=== PATIENT | male | born 1985 | race Caucasian/White ===

== ENCOUNTER 2021-07-07 17:35 | Observation (INO) ==
[2021-07-07 19:16] LABS: Basophils # 0.1 K/mcL (0.0-0.2); Basophils % 0.3 %; Eosinophils % 0.2 %; Hematocrit 45.8 % (37.5-50.1); Hemoglobin 16.1 g/dL (12.9-16.9); Immature Granulocytes % 0.4 % (0-4); Lymphocytes # 1.2 K/mcL (0.6-4.6); Lymphocytes % 7.1 %; Mean Corpuscular HGB Conc 35.2 g/dL (31.6-35.5); Mean Corpuscular Hemoglobin 31.3 pg (28.0-33.3); Mean Corpuscular Volume 89.1 fL (83.0-100.0); Mean Platelet Volume 9.6 fL (9.4-12.4); Monocytes # 1.2 K/mcL (0.0-1.3); Monocytes % 7.5 %; Neutrophils # 13.7 K/mcL (1.6-8.9); Platelet Count 242 K/mcL (140-400); Red Blood Count 5.14 M/mcL (4.19-5.50); Red Cell Distribution Width 11.6 % (11.5-14.5); Segmented Neutrophils % 84.5 %; White Blood Count 16.2 K/mcL (4.3-11.1)
[2021-07-07] MEDS ORDERED: *HR* FentaNYL (PF) 100 MCG/2 ML VIAL IVP ONE (19:17)
[2021-07-07] MEDS ORDERED: Ondansetron 4 MG/2 ML VIAL IVP ONE (19:17)
[2021-07-07 19:35] LABS: Alanine Aminotransferase 17 Units/L (7-52); Albumin 4.2 g/dL (3.5-5.7); Albumin/Globulin Ratio 1.5 (1.1-2.2); Alkaline Phosphatase 71 Units/L (34-104); Amylase 76 Units/L (29-103); Aspartate Amino Transferase 13 Units/L (13-39); BUN/Creatinine Ratio 9 (6-26); Bilirubin,Direct 0.2 mg/dL (0.0-0.2); Bilirubin,Indirect 0.8 mg/dL (0.0-1.0); Blood Urea Nitrogen 9 mg/dL (6-20); Carbon Dioxide 27 mEq/L (23-29); Chloride 100 mEq/L (98-107); Globulin 2.8 g/dL (2.4-3.5); Glucose 117 mg/dL (70-105); Lipase 12 Units/L (11-82); Osmolality,Calculated 278 (280-300); Potassium 3.6 mEq/L (3.5-5.1); Sodium 134 mEq/L (136-145); eGFR For African Americans > 60 (> 60); eGFR For Non-African Americans > 60 (> 60)
[2021-07-07 19:44] LABS: Bilirubin,Urine Negative (Negative); Blood,Urine Negative (Negative); Clarity,Urine Clear (Clear); Color,Urine Light-Yellow (Yellow); Glucose,Urine (UA) Normal (Normal); Ketones,Urine Negative (Negative); Leukocyte Esterase,Urine Negative (Negative); Nitrite,Urine Negative (Negative); Protein,Urine 30 mg/dL (Neg-Trace); RBC,Urine 0-3 per hpf (0-3); Specific Gravity,Urine 1.028 (1.010-1.025); Squamous Epithelial Cell,Urine Few per hpf (None-Few); Urobilinogen,Urine Normal (Normal); WBC,Urine 0-3 per hpf (0-3)
[2021-07-07] MEDS: 0.9 % Sodium Chloride 1,000 ML IVC SCH (19:48)
[2021-07-07] MEDS ORDERED: *HR* OxyCODONE/APAP 5/325 TABLET PO PRN (20:58)
[2021-07-07] MEDS ORDERED: Ketorolac 30 MG/ML VIAL IVP PRN (20:58)
[2021-07-07] MEDS ORDERED: Ondansetron 4 MG/2 ML VIAL IVP PRN (20:58)
[2021-07-07] MEDS ORDERED: Piperacillin/Tazobactam 3.375 GM in 0.9 % Sodium Chloride Mini Bag 100 ML IVPB ONE ×2 (21:00→21:15)
[2021-07-07] MEDS ORDERED: 0.9 % Sodium Chloride 1,000 ML IVC SCH (21:00)
[2021-07-08 05:30] LABS: Basophils # 0.1 K/mcL (0.0-0.2); Basophils % 0.4 %; Eosinophils # 0.1 K/mcL (0.0-0.6); Eosinophils % 0.8 %; Hematocrit 43.8 % (37.5-50.1); Hemoglobin 15.5 g/dL (12.9-16.9); Immature Granulocytes % 0.6 % (0-4); Lymphocytes # 2.2 K/mcL (0.6-4.6); Lymphocytes % 17.8 %; Mean Corpuscular HGB Conc 35.4 g/dL (31.6-35.5); Mean Corpuscular Hemoglobin 32.4 pg (28.0-33.3); Mean Corpuscular Volume 91.4 fL (83.0-100.0); Mean Platelet Volume 10.1 fL (9.4-12.4); Monocytes # 1.2 K/mcL (0.0-1.3); Monocytes % 9.3 %; Neutrophils # 8.7 K/mcL (1.6-8.9); Platelet Count 224 K/mcL (140-400); Red Blood Count 4.79 M/mcL (4.19-5.50); Red Cell Distribution Width 11.7 % (11.5-14.5); Segmented Neutrophils % 71.1 %; White Blood Count 12.3 K/mcL (4.3-11.1)
[2021-07-08 05:50] LABS: BUN/Creatinine Ratio 9 (6-26); Blood Urea Nitrogen 9 mg/dL (6-20); Calcium 8.7 mg/dL (8.6-10.3); Carbon Dioxide 27 mEq/L (23-29); Chloride 106 mEq/L (98-107); Glucose 105 mg/dL (70-105); Osmolality,Calculated 285 (280-300); Potassium 3.9 mEq/L (3.5-5.1); Sodium 138 mEq/L (136-145); eGFR For African Americans > 60 (> 60); eGFR For Non-African Americans > 60 (> 60)
[2021-07-08] MEDS: 0.9 % Sodium Chloride 1,000 ML IVC SCH (07:29)
[2021-07-08] MEDS ORDERED: *HR* HYDROmorphone (PF) 1 MG/ML SYRINGE IVP PRN ×2 (08:41→10:48)
[2021-07-08] MEDS ORDERED: *HR* Labetalol 20 MG/4 ML SYRINGE IVP PRN ×2 (08:41→10:48)
[2021-07-08] MEDS ORDERED: *HR* Promethazine 25 MG/ML VIAL IVPB PRN ×2 (08:41→10:48)
[2021-07-08] MEDS ORDERED: Famotidine 20 MG/2 ML VIAL IVP ONE ×2 (08:41→10:48)
[2021-07-08] MEDS ORDERED: *HR* OxyCODONE Immed Rel 5 MG TABLET PO PRN ×2 (08:41→10:48)
[2021-07-08] MEDS ORDERED: Acetaminophen IV 1,000 MG/100 ML BAG IVPB ONE (08:41)
[2021-07-08] MEDS ORDERED: *HR* HYDROmorphone 2 MG TABLET PO PRN ×2 (08:41→10:48)
[2021-07-08] MEDS ORDERED: *HR* Propofol 200 MG/20 ML VIAL IVP ONE (08:42)
[2021-07-08] MEDS ORDERED: Dexmedetomidine HCl 400 MCG/100 ML MLS IVC ONE (08:45)
[2021-07-08] MEDS ORDERED: Lidocaine -MPF 2% 5 ML VIAL ONE (08:47)
[2021-07-08] MEDS ORDERED: Lidocaine HCL 4 ML Topical Solution (Laryng-O-Jet Kit Sterile Pak) TP ONE (08:47)
[2021-07-08] MEDS ORDERED: *HR* Succinylcholine 200 MG/10 ML VIAL IVP ONE (08:47)
[2021-07-08] MEDS ORDERED: *HR* Rocuronium Bromide 50 MG/5 ML VIAL ONE (08:47)
[2021-07-08] MEDS ORDERED: Ondansetron 4 MG/2 ML VIAL ONE (08:47)
[2021-07-08] MEDS ORDERED: *HR* FentaNYL (PF) 100 MCG/2 ML VIAL ONE (08:49)
[2021-07-08] MEDS ORDERED: *HR* Midazolam HCl 2 MG/2 ML VIAL ONE (08:49)
[2021-07-08] MEDS ORDERED: Famotidine 20 MG/2 ML VIAL ONE (09:31)
[2021-07-08] MEDS ORDERED: Sugammadex Sodium 200 MG/2 ML VIAL IV ONE (09:35)
[2021-07-08] MEDS ORDERED: *HR* HYDROMORPHONE 2 MG/ML VIAL ONE (09:37)
[2021-07-08] MEDS ORDERED: *HR* OxyCODONE/APAP 5/325 TABLET PO PRN (10:48)
[2021-07-08] MEDS ORDERED: Ondansetron 4 MG/2 ML VIAL IVP PRN (10:48)
[2021-07-08] MEDS ORDERED: Ketorolac 30 MG/ML VIAL IVP PRN (10:48)
[2021-07-08] MEDS ORDERED: Piperacillin/Tazobactam 3.375 GM in 0.9 % Sodium Chloride Mini Bag 100 ML IVPB ONE (10:48)
[2021-07-08] MEDS ORDERED: 0.9 % Sodium Chloride 1,000 ML IVC SCH (10:48)
[2021-07-08 15:35] VITALS: BP 109/62; PULSE 60; TEMP 97.3; O2SAT 97
== END 2021-07-08 17:13 | disposition home or self-care (01) ==
LOC: EMEROOARM 17:35 → 3ANU 17:35
PROVIDERS: ADMIT Surgery; ATTEND Surgery